=== PATIENT | female | born 1950 | race Caucasian/White ===

== ENCOUNTER 2016-09-15 23:54 | Emergency (ER) | payer MEDICARE, OTHER ==
[~2016-09-15 23:54] MED LIST: ALLOPURINOL100 MG PO; CARAFATE1 GM PO; DILTIAZEM HCL60 MG PO; KLONOPIN0.5 MG PO; METRONIDAZOLE500 MG PO; NEXIUM40 MG PO; PROAIR HFA8.5 GM PO; PROZAC20 MG PO; TOPAMAX50 MG PO; TRAZODONE 150M150 MG PO; VASOTEC10 MG PO; ZOCOR20 MG PO
== END 2016-09-16 01:27 | disposition home or self-care (01) ==
LOC: FER 23:54
DX: K59.00 Constipation, unspecified (principal)
CPT/HCPCS: 74000; 99283

== ENCOUNTER 2020-12-30 14:54 | Emergency (ER) | payer OTHER ==
[~2020-12-30 14:54] MED LIST changes: +ABILIFY2 MG PO; +CENTRUM ADULTS1 EACH PO; +CIPRO500 M1 PO; +ESTER-C 1,0001 EACH PO; +FISH OIL 1,0001 EAC6 PO; +MELATONIN5 M2 PO; +MOTRIN600 MG PO; +OS-CAL500 MG PO; +PERCOCET 5-3251 EACH PO; +PROBIOTIC1 EAC3 PO; +PROTONIX 40MG T40 MG PO; +ZOLOFT50 MG PO
[2020-12-30] MEDS ORDERED: KEFLEX250 MG PO (21:47)
== END 2020-12-30 22:18 | disposition home or self-care (01) ==
LOC: FER 14:54
DX: S60.463A Insect bite (nonvenomous) of left middle finger, initial encounter (principal); S10.86XA Insect bite of other specified part of neck, initial encounter; L03.012 Cellulitis of left finger; L03.221 Cellulitis of neck; I10 Essential (primary) hypertension; E11.9 Type 2 diabetes mellitus without complications; W57.XXXA Bitten or stung by nonvenomous insect and other nonvenomous arthropods, initial encounter
CPT/HCPCS: 99282; J0696

== ENCOUNTER 2021-01-04 14:09 | Emergency (ER) | payer MEDICARE, OTHER ==
[~2021-01-04 14:09] MED LIST changes: +KEFLEX250 MG PO
[2021-01-04 17:12] LABS: BASOPHIL 0.7 % (0-2); EOSINOPHIL 1.5 % (0-7); HCT 45.5 % (37.0-47.0); HGB 14.8 g/dl (12.5-16.0); LYMPHOCYTE 43.6 % (15-48); MCH 30.4 pg (25.0-31.0); MCHC 32.5 g/dL (32.0-36.0); MCV 93.4 fL (78.0-100.0); MONOCYTE 10.4 % (0-12); MPV 11.1 fL (6.0-9.5); NEUTROPHIL 43.6 % (41-80); NRBC 0; PLT 183 K/uL (150-400); RBC 4.87 M/uL (4.20-5.40); RDW 12.9 % (11.5-14.0); WBC 4.5 K/uL (4.0-10.5)
[2021-01-04 17:38] LABS: CREATININE 1.18 mg/dL (0.51-0.95); POTASSIUM 3.7 mmol/L (3.5-5.1)
[2021-01-04 19:09] LABS: BILIRUBIN NEGATIVE (NEGATIVE); BLOOD NEGATIVE Ery/uL (NEGATIVE); CLARITY CLEAR (CLEAR); COLOR YELLOW (YELLOW); GLUCOSE (U) NORMAL (NORMAL); LEUKOCYTES NEGATIVE Leu/uL (NEGATIVE); NITRITE NEGATIVE (NEGATIVE); PROTEIN NEGATIVE (NEGATIVE); SPECIFIC GRAVITY 1.015 (1.001-1.030); UROBILINOGEN 0.2 mg/dL (0.2-1.0)
== END 2021-01-04 19:57 | disposition home or self-care (01) ==
LOC: FER 14:09
PROVIDERS: Nurse Practitioner Family
DX: U07.1 COVID-19 (principal); R07.89 Other chest pain; I10 Essential (primary) hypertension
CPT/HCPCS: 36415; 71045; 80048; 81003; 84484; 85025; 93005; M0243; Q0244

== ENCOUNTER 2021-04-07 14:54 | Emergency (ER) | payer MEDICARE, OTHER ==
[2021-04-07 15:56] LABS: BASOPHIL 0.8 % (0-2); EOSINOPHIL 5.2 % (0-7); HGB 14.8 g/dl (12.5-16.0); LYMPHOCYTE 38.1 % (15-48); MCH 31.2 pg (25.0-31.0); MCHC 32.9 g/dL (32.0-36.0); MCV 94.7 fL (78.0-100.0); MONOCYTE 10.9 % (0-12); MPV 11.3 fL (6.0-9.5); NEUTROPHIL 44.7 % (41-80); NRBC 0; PLT 195 K/uL (150-400); RBC 4.75 M/uL (4.20-5.40); RDW 13.1 % (11.5-14.0); WBC 6.4 K/uL (4.0-10.5)
[2021-04-07 16:07] LABS: CORONAVIRUS 2019 SARS-COV-2 NEGATIVE (NEGATIVE); INFLUENZA A NAA NEGATIVE (NEGATIVE)
[2021-04-07 16:13] LABS: ALBUMIN 3.9 g/dL (3.4-5.0); BILIRUBIN - TOTAL 0.3 mg/dL (0.2-1.0); BUN/CREAT RATIO (CALC) 7.5 RATIO; CREATININE 1.2 mg/dL (0.51-0.95); GLOBULIN (CALCULATION) 3.9 g/dL; POTASSIUM 3.8 mmol/L (3.5-5.1); TOTAL PROTEIN 7.8 g/dL (6.4-8.2)
[2021-04-07 16:56] LABS: BILIRUBIN NEGATIVE (NEGATIVE); BLOOD NEGATIVE Ery/uL (NEGATIVE); CLARITY CLEAR (CLEAR); COLOR YELLOW (YELLOW); GLUCOSE (U) NORMAL (NORMAL); LEUKOCYTES NEGATIVE Leu/uL (NEGATIVE); NITRITE NEGATIVE (NEGATIVE); PROTEIN NEGATIVE (NEGATIVE); SPECIFIC GRAVITY <=1.005 (1.001-1.030); UROBILINOGEN 0.2 mg/dL (0.2-1.0)
[2021-04-07] MEDS ORDERED: ZOFRAN4 M1 PO (17:12)
== END 2021-04-07 17:36 | disposition home or self-care (01) ==
LOC: FER 14:54
PROVIDERS: Nurse Practitioner Family
DX: R11.2 Nausea with vomiting, unspecified (principal); R19.7 Diarrhea, unspecified; I10 Essential (primary) hypertension; Z20.822 Contact with and (suspected) exposure to COVID-19
CPT/HCPCS: 36415; 36600; 71045; 80053; 81003; 82803; 83690; 85025; J1100; J2405; J7030; U0002